=== PATIENT | male | born 1980 | race Caucasian/White ===

== ENCOUNTER 2017-01-23 09:20 | Emergency (ER) | payer OTHER ==
[~2017-01-23] VITALS: Ht 180.3 cm; Wt 87.9 kg
[~2017-01-23 09:20] MED LIST: ASPIRIN EC325 MG PO; CARDIZEM30 MG PO; COZAAR25 MG PO; ELIQUIS5 MG PO; FOLBIC,FOLTX1 DOSE PO; KEFLEX500 MG PO; LEVAQUIN750 MG PO; LOPRESSOR50 MG PO; OMEPRAZOLE40 M1 PO; ZOLOFT50 MG PO
[2017-01-23 10:03] LABS: EOSINOPHIL (%) 4.6 % (0-5); EOSINOPHIL COUNT 0.4 K/uL (0-0.3); HEMATOCRIT 40.6 % (38.0-50.0); IMMATURE GRANULOCYTE (%) 0.3 % (0.0-0.7); INSTRUMENT ABS NEUTROPHIL CT 7.1 K/uL; MCH 29.8 PG (29.0-34.0); MCHC 33.5 G/DL (30.0-36.0); MEAN PLAT.VOLUME 10.9 uM^3 (9.0-12.4); MONOCYTE (%) 8.1 % (3-12); MONOCYTE COUNT 0.8 K/uL (0-0.8); NEUTROPHIL (%) 76.3 % (45-76); NEUTROPHIL COUNT 7.1 K/uL (1.8-6.4); PLATELET COUNT 192 K/uL (156-360); RBC DIS.WIDTH-CV 12.2 % (11.8-14.6); RBC DIS.WIDTH-SD 39.8 % (39-53); RED BLOOD COUNT 4.56 M/uL (4.00-5.50); WHITE BLOOD COUNT 9.3 K/uL (4.1-10.2)
[2017-01-23 10:13] LABS: ADD MIUA? NO; BILIRUBIN NEGATIVE; BLOOD NEGATIVE; COLOR YELLOW ((YELLOW)); GLUCOSE (STRIP) NEGATIVE; KETONES NEGATIVE; LEUKOCYTES NEGATIVE; NITRITE NEGATIVE; PROTEIN (STRIP) NEGATIVE; SPECIFIC GRAVITY 1.014 (1.000-1.030); UCUL ADDED? NO; UROBILINOGEN 0.2 MG/DL (0.2-1.0)
[2017-01-23 10:22] LABS: AMPHETAMINE NEGATIVE (500 ng/mL); BARBITURATES NEGATIVE (200 ng/mL); BENZODIAZEPINES PRESUMPTIVE POSITIVE (150 ng/mL); COCAINE NEGATIVE (150 ng/mL); INTERNAL CONTROLS VALID? YES; METHADONE NEGATIVE (200 ng/mL); METHAMPHETAMINE NEGATIVE (500 ng/mL); OPIATES (MORPHINE) NEGATIVE (100 ng/mL); OXYCODONE NEGATIVE (100 ng/mL); PHENCYCLIDINE NEGATIVE (25 ng/mL); PROPOXYPHENE NEGATIVE (300 ng/mL); THC CANNABINOIDS NEGATIVE (50 ng/mL); TRICYCLIC ANTIDEPRESSANTS NEGATIVE (300 ng/mL)
[2017-01-23 10:23] LABS: ADD MEDTOX COMMENT Y
[2017-01-23 10:24] LABS: CHLORIDE 110 mEq/L (99-109); POTASSIUM 4.8 mEq/L (3.7-5.4); SODIUM 142 mEq/L (136-147)
[2017-01-23 10:26] LABS: GLUCOSE 76 mg/dL (70-99)
[2017-01-23 10:27] LABS: ANION GAP 8 MEQ/L (2-14)
[2017-01-23 10:29] LABS: GFR ESTIMATE (CALCULATED) > 59 mL/min/
[2017-01-23 10:30] LABS: UREA NITROGEN (BUN) 13 mg/dL (9-23)
[2017-01-23 11:22] LABS: INTERNAL CONTROL VALID? YES; MONOSPOT (MONONUCLEOSIS SEROL) NEGATIVE
[2017-01-23 11:31] LABS: BENZODIAZEPINES, URINE SCREEN POSITIVE (200 ng/mL)
[2017-01-23] MEDS ORDERED: PREDNISONE50 MG PO (12:16)
[2017-01-23 13:03] VITALS: BP 110/80
== END 2017-01-23 13:15 | disposition home or self-care (01) ==
LOC: EME 09:20
PROVIDERS: Emergency Medicine
DX: R53.1 Weakness (principal); Z87.891 Personal history of nicotine dependence; I10 Essential (primary) hypertension; Z79.01 Long term (current) use of anticoagulants; I48.91 Unspecified atrial fibrillation; Z79.82 Long term (current) use of aspirin; K21.9 Gastro-esophageal reflux disease without esophagitis
CPT/HCPCS: 80048; 81003; 84999; 85025; 86308; 99281; 99285; J7030; J7512

== ENCOUNTER 2017-04-15 11:33 | Emergency (ER) | payer OTHER ==
[~2017-04-15] VITALS: Ht 180.3 cm; Wt 91.8 kg
[~2017-04-15 11:33] MED LIST changes: +PREDNISONE50 MG PO
[2017-04-15] MEDS ORDERED: FLECAINIDE ACE100 MG PO (12:55)
[2017-04-15] MEDS ORDERED: PRADAXA150 MG PO (12:56)
[2017-04-15] MEDS ORDERED: IRBESARTAN150 MG PO (12:57)
[2017-04-15] MEDS ORDERED: ESZOPICLONE3 MG PO (12:57)
[2017-04-15] MEDS ORDERED: BUPROPION XL300 MG PO (12:57)
[2017-04-15] MEDS ORDERED: QUETIAPINE FUMA25 MG PO (12:58)
[2017-04-15 13:15] LABS: AMPHETAMINE NEGATIVE (500 ng/mL); BARBITURATES NEGATIVE (200 ng/mL); BENZODIAZEPINES NEGATIVE (150 ng/mL); COCAINE NEGATIVE (150 ng/mL); INTERNAL CONTROLS VALID? YES; METHADONE NEGATIVE (200 ng/mL); METHAMPHETAMINE NEGATIVE (500 ng/mL); OPIATES (MORPHINE) NEGATIVE (100 ng/mL); OXYCODONE NEGATIVE (100 ng/mL); PHENCYCLIDINE NEGATIVE (25 ng/mL); PROPOXYPHENE NEGATIVE (300 ng/mL); THC CANNABINOIDS NEGATIVE (50 ng/mL); TRICYCLIC ANTIDEPRESSANTS NEGATIVE (300 ng/mL)
[2017-04-15 13:18] LABS: HEMATOCRIT 44.2 % (38.0-50.0); MCH 29.9 PG (29.0-34.0); MCV 90.6 FL (86-99); MEAN PLAT.VOLUME 10.1 uM^3 (9.0-12.4); PLATELET COUNT 290 K/uL (156-360); RBC DIS.WIDTH-CV 13.7 % (11.8-14.6); RBC DIS.WIDTH-SD 45.8 % (39-53); RED BLOOD COUNT 4.88 M/uL (4.00-5.50); WHITE BLOOD COUNT 9.7 K/uL (4.1-10.2)
[2017-04-15 13:35] LABS: CHLORIDE 109 mEq/L (99-109); POTASSIUM 4.4 mEq/L (3.7-5.4); SODIUM 140 mEq/L (136-147)
[2017-04-15 13:37] LABS: GLUCOSE 97 mg/dL (70-99)
[2017-04-15 13:38] LABS: ANION GAP 12 MEQ/L (2-14)
[2017-04-15 13:40] LABS: SERUM ETHYL ALCOHOL < 10 mg/dL
[2017-04-15 13:41] LABS: GFR ESTIMATE (CALCULATED) 52 mL/min/
[2017-04-15 13:42] LABS: UREA NITROGEN (BUN) 18 mg/dL (9-23)
[2017-04-15 17:30] VITALS: BP 134/87
== END 2017-04-15 17:41 | disposition home or self-care (01) ==
LOC: EME 11:33
DX: F32.9 Major depressive disorder, single episode, unspecified (principal); F43.23 Adjustment disorder with mixed anxiety and depressed mood; F29 Unspecified psychosis not due to a substance or known physiological condition; F41.9 Anxiety disorder, unspecified; R53.1 Weakness; Z87.891 Personal history of nicotine dependence
CPT/HCPCS: 70450; 80048; 85027; 90839; 99281; 99284; G0480